=== PATIENT | male | born 1990 | race Caucasian/White ===

== ENCOUNTER 2017-03-23 21:03 | Inpatient (IN) | payer MEDICAID ==
[~2017-03-23] VITALS: Ht 177.8 cm; Wt 112.2 kg
[2017-03-23 22:41] LABS: BASOPHIL % 0.4 % (0-2); PLATELET COUNT 363 x10^3mcL (130-400)
[2017-03-23 22:42] LABS: RED CELL DISTRIBUTION WIDTH 14.8 % (11.5-14.5)
[2017-03-23 22:47] LABS: CARBON DIOXIDE 29.1 mmol/L (21-32); CHLORIDE SERUM 104 mmol/L (98-107); GFR1 > 60 mL/min; GLUCOSE SERUM 105 mg/dL (74-106); SODIUM SERUM 139 mmol/L (136-145)
[2017-03-23 22:52] LABS: ALBUMIN 3.6 g/dL (3.4-5.0); ALKALINE PHOSPHATASE 321 U/L (46-116); ALT/SGPT 517 U/L (16-63); AST/SGOT 159 U/L (15-37); BILIRUBIN TOTAL 0.6 mg/dL (0.20-1.00); TOTAL PROTEIN, SERUM 8.1 g/dL (6.4-8.2)
[2017-03-23 22:54] LABS: LIPASE 2233 IU/L (73-393)
[2017-03-24] VITALS (8 sets, daily range): BP systolic 114–141; BP diastolic 66–75
[2017-03-24 04:17] LABS: MAGNESIUM 2.2 mg/dL (1.8-2.4)
[2017-03-24 04:18] LABS: CHOLESTEROL/HDL RATIO 4.7
[2017-03-24 04:38] LABS: T3 TOTAL 1.55 ng/mL
[2017-03-24 05:07] LABS: FREE T4 1.18 ng/dL (0.76-1.46); FREE THYROXINE INDEX 3.6 ug/dL (1.4-4.5); T4(THYROXINE) 11.1 ug/dL (4.7-13.3)
[2017-03-24 07:44] LABS: BASOPHIL % 0.2 % (0-2); PLATELET COUNT 355 x10^3mcL (130-400); RED CELL DISTRIBUTION WIDTH 14.5 % (11.5-14.5)
[2017-03-24 07:53] LABS: CALCIUM 8.7 mg/dL (8.5-10.1); CARBON DIOXIDE 27.5 mmol/L (21-32); CHLORIDE SERUM 104 mmol/L (98-107); CREATININE SERUM 0.9 mg/dL (0.7-1.3); GFR1 > 60 mL/min; GLUCOSE SERUM 103 mg/dL (74-106); MAGNESIUM 1.9 mg/dL (1.8-2.4); PHOSPHOROUS 3.6 mg/dL (2.5-4.9); POTASSIUM SERUM 3.5 mmol/L (3.5-5.1); SODIUM SERUM 139 mmol/L (136-145)
[2017-03-24 15:14] LABS: AMPHETAMINE QUAL UR NONE DETECTED (NEG <=1000)
[2017-03-24 16:32] LABS: microscopic required? YES; urine erythrocyte TRACE (NEGATIVE)
[2017-03-25 05:45] VITALS: BP 122/69
[2017-03-25 06:48] LABS: AMYLASE 108 U/L (25-115); CALCIUM 9.1 mg/dL (8.5-10.1); CARBON DIOXIDE 26.7 mmol/L (21-32); CHLORIDE SERUM 103 mmol/L (98-107); CREATININE SERUM 0.9 mg/dL (0.7-1.3); GFR1 > 60 mL/min; GLUCOSE SERUM 106 mg/dL (74-106); LIPASE 557 IU/L (73-393); MAGNESIUM 2.2 mg/dL (1.8-2.4); PHOSPHOROUS 4.5 mg/dL (2.5-4.9); POTASSIUM SERUM 3.4 mmol/L (3.5-5.1); SODIUM SERUM 141 mmol/L (136-145)
[2017-03-25 06:49] LABS: BASOPHIL % 0.3 % (0-2)
[2017-03-25 07:00] LABS: PLATELET COUNT 408 x10^3mcL (130-400); RED CELL DISTRIBUTION WIDTH 14.7 % (11.5-14.5)
[2017-03-25 09:45] VITALS: BP 136/75
[2017-03-25 14:30] VITALS: BP 134/72
[2017-03-25 16:39] VITALS: BP 102/54
[2017-03-25 20:32] VITALS: BP 125/71
[2017-03-25 20:57] VITALS: BP 114/62
[2017-03-26 05:44] VITALS: BP 121/75
[2017-03-26 07:15] LABS: BASOPHIL % 0.3 % (0-2); PLATELET COUNT 321 x10^3mcL (130-400)
[2017-03-26 07:17] LABS: CALCIUM 8.8 mg/dL (8.5-10.1); CARBON DIOXIDE 25.4 mmol/L (21-32); CHLORIDE SERUM 104 mmol/L (98-107); CREATININE SERUM 0.8 mg/dL (0.7-1.3); GFR1 > 60 mL/min; GLUCOSE SERUM 85 mg/dL (74-106); POTASSIUM SERUM 4.1 mmol/L (3.5-5.1); SODIUM SERUM 138 mmol/L (136-145)
[2017-03-26 07:30] LABS: RED CELL DISTRIBUTION WIDTH 14.8 % (11.5-14.5)
[2017-03-26 09:57] VITALS: BP 121/70
[2017-03-26] MEDS ORDERED: LIPI10 PO (11:56)
[2017-03-26] MEDS ORDERED: COL100 PO (11:57)
[2017-03-26 12:10] VITALS: BP 121/70
== END 2017-03-26 13:20 | disposition home or self-care (01) | DRG 263 ==
LOC: ED 21:03 → DU 23:42 → MU 23:42 → DU 03-24 01:00 → MU 03-24 11:05
PROVIDERS: Emergency Medicine; Family Medicine; Surgery; ADMIT Family Medicine
PROC: BF10YZZ Fluoroscopy of Bile Ducts using Other Contrast (ICD-10-PCS; 2017-03-25)
PROC: 0FT44ZZ Resection of Gallbladder, Percutaneous Endoscopic Approach (ICD-10-PCS; principal; 2017-03-25 11:30)
DX: K85.10 Biliary acute pancreatitis without necrosis or infection (principal); D47.3 Essential (hemorrhagic) thrombocythemia; E87.6 Hypokalemia; R73.03 Prediabetes; E78.5 Hyperlipidemia, unspecified; F12.10 Cannabis abuse, uncomplicated; D64.9 Anemia, unspecified; E66.9 Obesity, unspecified; Z68.35 Body mass index [BMI] 35.0-35.9, adult
CPT/HCPCS: 82962; 83880; 84439; 94150; C1758; J0330; J0744; J1170; J1644; J2175; J2250; J2405; J2704; J3010; J3480; J3490; J7030; J7120; Q0092; Q9967